=== PATIENT | female | born 1975 | race Caucasian/White ===

== ENCOUNTER → 2016-11-15 | Outpatient (CLI) | payer OTHER ==
[~2016-11-15] MED LIST: ALPR0.25 PO; AMIT25TA PO; AMIT50TA PO; CITA20TA9 PO; LAMO200T3 PO; LEVE100020 PO; ONDA4TAB10 PO; SUVO20TA PO; TOPI200C PO; TRAM50TA2 PO
== END | disposition home or self-care (01) ==
LOC: CARD 12:47
PROVIDERS: ATTEND Registered Nurse
DX: R56.9 Unspecified convulsions (principal)
CPT/HCPCS: 95819

== ENCOUNTER 2017-03-06 19:36 | Inpatient (IN) | payer OTHER ==
[~2017-03-06] VITALS: Ht 162.6 cm; Wt 72.6 kg
[2017-03-06] MEDS ORDERED: AMIT50TA PO (19:49)
[2017-03-06 20:15] LABS: HEMATOCRIT 36.6 % (34.6-47.8); HEMOGLOBIN 12.7 g/dL (11.7-16.4)
[2017-03-06 20:16] LABS: BLOOD UREA NITROGEN 7 mg/dL (7-18)
[2017-03-06] MEDS ORDERED: LEVETIRACETAM 500 MG in SODIUM CHLORIDE 0.9% 100 ML IV ONE (23:00)
[2017-03-06] MEDS ORDERED: D5%-0.45% NACL 1,000 ML IV SCH (23:59)
[2017-03-07] MEDS ORDERED: ONDANSETRON 2MG/ML, 2ML IVPush PRN
[2017-03-07] MEDS ORDERED: LORazepam 2 MG/ML, 1ML IVPush PRN
[2017-03-07 01:10] VITALS: BP 96/66
[2017-03-07 01:34] VITALS: BP 96/66
[2017-03-07 06:45] VITALS: BP 90/61
[2017-03-07] MEDS ORDERED: GADOBUTROL 7.5 MMOL/7.5 ML PFS ONE (07:57)
[2017-03-07] MEDS ORDERED: LEVETIRACETAM 500 MG in SODIUM CHLORIDE 0.9% 100 ML IV SCH (09:00)
[2017-03-07 09:59] VITALS: BP 95/61
[2017-03-07] MEDS ORDERED: KETOROLAC 30 MG/1 ML IVPush ONE (10:30)
[2017-03-07 14:58] VITALS: BP 96/62
[2017-03-07] MEDS ORDERED: ACETAMINOPHEN 325 MG TABLET PO PRN (18:00)
[2017-03-07 18:58] LABS: DAU SCREEN DISCLAIMER
[2017-03-07 19:19] VITALS: BP 109/73
[2017-03-07] MEDS: AMITRIPTYLINE 25 MG TABLET PO SCH (21:25)
[2017-03-08 01:36] VITALS: BP 106/71
[2017-03-08] MEDS: KETOROLAC 30 MG/1 ML IVPush PRN ×2 (08:49→15:00)
[2017-03-08 08:57] VITALS: BP 119/80
[2017-03-08 13:58] VITALS: BP 110/74
[2017-03-08 20:11] VITALS: BP 112/70
[2017-03-08] MEDS: AMITRIPTYLINE 25 MG TABLET PO SCH (20:39)
[2017-03-09 05:24] VITALS: BP 94/60
[2017-03-09 07:56] VITALS: BP 111/78
[2017-03-09] MEDS ORDERED: ZONI100C36 PO (11:27)
== END 2017-03-09 12:00 | disposition home or self-care (01) | DRG 101 ==
LOC: ED 22:39 → EDIP 23:02 → 4WST 03-07 00:26
PROVIDERS: ADMIT Hospitalist; ATTEND Hospitalist
DX: G40.909 Epilepsy, unspecified, not intractable, without status epilepticus (principal); F32.9 Major depressive disorder, single episode, unspecified; F17.210 Nicotine dependence, cigarettes, uncomplicated; F41.1 Generalized anxiety disorder; Z88.8 Allergy status to other drugs, medicaments and biological substances; Z88.1 Allergy status to other antibiotic agents
CPT/HCPCS: 36415; 70450; 70553; 71010; 80048; 80307; 82040; 85025; 93005; 95951; 96365; A9585; J1885; J1953; G0479

== ENCOUNTER 2019-05-01 09:48 | Emergency (ER) | payer OTHER ==
[~2019-05-01] VITALS: Ht 162.6 cm; Wt 68.3 kg
[~2019-05-01 09:48] MED LIST changes: -TOPI200C PO; +TOPI200C6 PO; +ZONI100C36 PO
--- NOTE | 2019-05-01 10:28 | NUR ---
PT HERE WITH C/O ABDOMINAL PAIN, LLQ, WITH NAUSEA/VOMITTING. PT STATES STARTED AROUND 0200 THIS MORNING. PT AAO X 4, DRESSED IN GOWN AND ON MONITOR, ROOM AIR. CALL LIGHT WITHIN REACH AND AT BEDSIDE. PT GUARDING LLQ, STATES 10/10 PAIN, CRYING. PT STATES HX EPILEPSY AND TAKES DAILY MEDS FOR IT. SIDERAIL X [address]
[2019-05-01] MEDS ORDERED: TOPAMAX (10:30)
[2019-05-01] MEDS ORDERED: KETOROLAC 30 MG/1 ML IVPush ONE (10:30)
[2019-05-01] MEDS ORDERED: SODIUM CHLORIDE 0.9% 1,000ML IVBOLUS ONE (10:30)
[2019-05-01] MEDS ORDERED: ONDANSETRON 2MG/ML, 2ML IVPush ONE (10:30)
[2019-05-01] MEDS ORDERED: DEPAKOTE (10:30)
[2019-05-01] MEDS ORDERED: SODIUM CHLORIDE FLUSH 10ML SYR IVF ONE (10:30)
[2019-05-01] MEDS ORDERED: ONDANSETRON 2MG/ML, 2ML ONE (10:50)
[2019-05-01] MEDS ORDERED: MORPHINE SULFATE 4 MG/ML, 1ML ONE ×2 (10:51→11:36)
[2019-05-01] MEDS: MORPHINE SULFATE 4 MG/ML, 1ML IVPush PRN ×2 (10:56→11:38)
[2019-05-01] MEDS ORDERED: KETOROLAC 30 MG/1 ML ONE (10:57)
--- NOTE | 2019-05-01 10:59 | NUR ---
PIV ESTABLISHED AND LABS DRAWN, PT MEDICATED PER ORDERS.
--- NOTE | 2019-05-01 11:12 | NUR ---
PT TO CT.
[2019-05-01 11:15] LABS: BASOPHILS # (AUTO) 0.06 x10^3/uL (0-0.1); BASOPHILS % (AUTO) 1 % (0-1); EOSINOPHILS # (AUTO) 0.04 x10^3/uL (0-0.4); EOSINOPHILS % (AUTO) 1 % (1-7); LYMPHOCYTES # (AUTO) 1.08 x10^3/uL (1-3.4); LYMPHOCYTES % (AUTO) 14 % (22-44); MD NO; MEAN CORPUSCULAR HEMOGLOBIN 31.4 pg (27.0-34.8); MEAN CORPUSCULAR HGB CONC 33.6 g/dL (32.4-35.8); MEAN CORPUSCULAR VOLUME 93.3 fL (80-100); MEAN PLATELET VOLUME 8.3 fL (7.4-10.4); MONOCYTES % (AUTO) 5 % (2-9); NEUTROPHILS # (AUTO) 5.99 x10^3/uL (1.8-6.8); NEUTROPHILS % (AUTO) 79 % (42-75); PLATELET COUNT 248 x10^3/uL (130-400); RED BLOOD COUNT 4.41 x10^6/uL (3.82-5.3); RED CELL DISTRIBUTION WIDTH 13.1 % (9.6-15.2)
[2019-05-01 11:23] LABS: ALANINE AMINOTRANSFERASE 24 U/L (12-78); ALBUMIN 4.3 g/dL (3.4-5.0); ANION GAP 6 mmol/L (5-15); CALCIUM 8.9 mg/dL (8.5-10.1); CHLORIDE 109 mmol/L (98-107); CREATININE 0.95 mg/dL (0.55-1.02)
[2019-05-01 11:25] LABS: ALKALINE PHOSPHATASE 63 U/L (45-117); BILIRUBIN,TOTAL 0.4 mg/dL (0.2-1.0); TOTAL PROTEIN 7.5 g/dL (6.4-8.2)
--- NOTE | 2019-05-01 11:39 | NUR ---
PT BACK FROM CT. MEDICATED PER AUG.
--- NOTE | 2019-05-01 12:12 | NUR ---
PT AMBULATORY TO RESTROOM WITH STEADY GAIT FOR URINE SAMPLE, UA LABELED AND SENT TO LAB.
--- NOTE | 2019-05-01 12:25 | NUR ---
PT STATES PAIN "COMING BACK," THIS RN TO NOTIFY .
[2019-05-01] MEDS ORDERED: HYDROmorphone 1 MG/ML, 1ML VIAL ONE ×2 (12:47→13:22)
[2019-05-01] MEDS: HYDROmorphone 2 MG/ML, 1ML IVPush PRN ×2 (12:49→13:25)
--- NOTE | 2019-05-01 12:51 | NUR ---
UPDATED ON PT'S REQUEST FOR MEDS, NEW ORDER RECEIVED. PT MEDICATED PER ORDER.
[2019-05-01 12:55] LABS: MICROSCOPIC NOT IND
[2019-05-01 12:58] LABS: CULTURE INDICATED? NO
--- NOTE | 2019-05-01 13:25 | NUR ---
PT MEDICATED PER MAR.
--- NOTE | 2019-05-01 13:30 | NUR ---
PT TO US.
[2019-05-01 13:58] VITALS: BP 126/81
--- NOTE | 2019-05-01 13:58 | NUR ---
PT BACK FROM US.
--- NOTE | 2019-05-01 14:21 | NUR ---
ALL RESULTS BACK AT THIS TIME, CHART UP FOR RECHECK.
--- NOTE | 2019-05-01 15:19 | NUR ---
Patient/Caregiver given discharge instructions and they have confirmed that they understand the instructions. Patient ambulatory with steady gait. PIV REMOVED TIP INTACT.
== END 2019-05-01 15:20 | disposition home or self-care (01) ==
LOC: ED 13:04
DX: N83.292 Other ovarian cyst, left side (principal); N83.8 Other noninflammatory disorders of ovary, fallopian tube and broad ligament; R11.2 Nausea with vomiting, unspecified; R10.32 Left lower quadrant pain; G43.909 Migraine, unspecified, not intractable, without status migrainosus; F17.200 Nicotine dependence, unspecified, uncomplicated; Z90.710 Acquired absence of both cervix and uterus
CPT/HCPCS: 36415; 74176; 76830; 80053; 81003; 83690; 85025; 96361; 96374; 96375; 96376; 99284; J1170; J1885; J2270; J2405; J7030